=== PATIENT | male | born 1995 | race American Indian/Alaskan Native ===

== ENCOUNTER 2021-11-05 20:58 | Emergency (ER) | payer SELFPAY ==
[2021-11-05] MEDS ORDERED: Midazolam 1 MG/ML 2 ML SDV IV ONE (20:59)
[2021-11-05] MEDS ORDERED: Propofol 200 MG/20 ML SDV IV ONE (20:59)
[2021-11-05] MEDS ORDERED: Ketamine 500 mg/10 ML MDV IV ONE (20:59)
[2021-11-05] MEDS ORDERED: fentaNYL 100 MCG/2 ML SDV IV ONE (20:59)
[2021-11-05] MEDS ORDERED: Sodium Chloride 0.9% 10 ML Syringe FLUSH PRN (21:20)
[2021-11-05] MEDS ORDERED: Ketorolac 30 MG/ML SDV IVPUSH STA (21:21)
[2021-11-05] MEDS ORDERED: Morphine 4 MG/ML VIAL IVPUSH STA (21:21)
== END 2021-11-06 00:10 | disposition home or self-care (01) ==
LOC: FB.ED 20:58
DX: S53.105A Unspecified dislocation of left ulnohumeral joint, initial encounter (principal); X58.XXXA Exposure to other specified factors, initial encounter
CPT/HCPCS: 01730-QZ; 24600; 24605; 73070-LT; 99282; 99283-25; J2250; J2704; J3010; J3490